=== PATIENT | female | born 1970 | race Caucasian/White ===

== ENCOUNTER → 2017-08-22 | Outpatient (CLI) | payer OTHER ==
[~2017-08-22] MED LIST: ALBU.083IS IH; ALBU90OI INH; ALBU90OI61 INH; BUDE10.22 IH; CETI10 PO; DIPH50 PO; DOXY100 PO; DULO30 PO; ERGO50000 PO; FISH1000 PO; FLUSAL2505 IH; FLUSAL5005 IH; GUAI600T33 PO; LATISSE TP; MONT10T; MULVITMINF PO; Mobic15 MG PO; PRED10 PO; PRED20 PO; ZOLP5
[2017-08-22 18:17] LABS: BASOPHILS ABSOLUTE AUTO 0.04 K/mm3 (0.00-0.23); BASOPHILS PERCENT AUTO 0 % (0-2); EOSINOPHILS ABSOLUTE AUTO 0.34 K/mm3 (0.00-0.68); EOSINOPHILS PERCENT AUTO 3 % (0-6); Hematocrit 37.2 % (33.0-51.0); Hemoglobin 12.1 g/dL (11.5-16.0); IMMATURE GRAN ABSOLUTE AUTO 0.03 K/mm3 (0.00-0.10); IMMATURE GRAN PERCENT AUTO 0 % (0-1); LYMPHOCYTES ABSOLUTE AUTO 2.77 K/mm3 (0.84-5.20); LYMPHOCYTES PERCENT AUTO 24 % (21-46); MONOCYTES ABSOLUTE AUTO 0.68 K/mm3 (0.16-1.47); MONOCYTES PERCENT AUTO 6 % (4-13); Mean Corpuscular HGB 28.3 pg (26.0-34.0); Mean Corpuscular HGB Conc 32.5 g/dL (31.5-36.5); Mean Corpuscular Volume 87 fL (80-100); Mean Platelet Volume 9.7 fL (9.1-12.4); NEUTROPHILS ABSOLUTE AUTO 7.77 K/mm3 (1.96-9.15); NEUTROPHILS PERCENT AUTO 67 % (41-73); Platelet Count 336 K/mm3 (150-400); RDW Coefficient Variation 13.5 % (11.7-14.2); RDW Standard Deviation 42.5 fL (35.1-46.3); Red Blood Cell Count 4.28 M/mm3 (3.80-5.20); White Blood Cell Count 11.63 K/mm3 (4.00-11.30)
[2017-08-22 20:31] LABS: Alanine Aminotransfer (ALT/SGP 22 U/L (12-78); Albumin, Blood 3.5 g/dL (3.4-5.0); Alk Phos 74 U/L (50-136); Anion Gap 7 mmol/L (6-16); Aspartate Aminotrans (AST/SGOT 13 U/L (12-37); Bilirubin, Total 0.5 mg/dL (0.1-1.0); Blood Urea Nitrogen 11 mg/dL (8-24); Bun/Creatinine Ratio 14.7 (12.0-20.0); CO2, Blood 25 mmol/L (21-32); Calcium, Blood 8.3 mg/dL (8.5-10.1); Chloride, Blood 107 mmol/L (98-108); Creatinine, Blood 0.75 mg/dL (0.40-1.00); Globulin, Blood 3.4 g/dL (2.2-4.0); Glomerular Filtration Rate >60 (60-); Glucose, Blood 90 mg/dL (70-99); Potassium, Blood 3.9 mmol/L (3.5-5.5); Sodium, Blood 139 mmol/L (136-145); Total Protein, Blood 6.9 g/dL (6.4-8.2)
== END | disposition home or self-care (01) ==
LOC: LAB 15:30
PROVIDERS: Nurse Practitioner Adult Health
DX: R22.30 Localized swelling, mass and lump, unspecified upper limb (principal)
CPT/HCPCS: 80053; 85025

== ENCOUNTER → 2017-10-05 | Outpatient (CLI) | payer OTHER ==
[2017-10-05 21:11] LABS: Alanine Aminotransfer (ALT/SGP 23 U/L (12-78); Albumin, Blood 3.5 g/dL (3.4-5.0); Albumin/Globulin Ratio 1.1 (0.8-1.8); Alk Phos 65 U/L (50-136); Anion Gap 6 mmol/L (6-16); Aspartate Aminotrans (AST/SGOT 11 U/L (12-37); Bilirubin, Total 0.5 mg/dL (0.1-1.0); Blood Urea Nitrogen 14 mg/dL (8-24); Bun/Creatinine Ratio 17.8 (12.0-20.0); CO2, Blood 28 mmol/L (21-32); Calcium, Blood 8.9 mg/dL (8.5-10.1); Chloride, Blood 106 mmol/L (98-108); Creatinine, Blood 0.79 mg/dL (0.40-1.00); Globulin, Blood 3.2 g/dL (2.2-4.0); Glomerular Filtration Rate >60 (60-); Glucose, Blood 81 mg/dL (70-99); Potassium, Blood 4.2 mmol/L (3.5-5.5); Sodium, Blood 140 mmol/L (136-145); Total Protein, Blood 6.7 g/dL (6.4-8.2)
== END ==
LOC: LAB SHORT 09:36 → LAB 09:36
PROVIDERS: Nurse Practitioner Adult Health
DX: E78.4 Other hyperlipidemia (principal); R22.30 Localized swelling, mass and lump, unspecified upper limb; R53.83 Other fatigue
CPT/HCPCS: 80053

== ENCOUNTER → 2017-10-12 | Outpatient (CLI) | payer OTHER ==
[2017-10-12 18:31] LABS: BASOPHILS ABSOLUTE AUTO 0.04 K/mm3 (0.00-0.23); BASOPHILS PERCENT AUTO 1 % (0-2); EOSINOPHILS ABSOLUTE AUTO 0.37 K/mm3 (0.00-0.68); EOSINOPHILS PERCENT AUTO 5 % (0-6); Hematocrit 37.6 % (33.0-51.0); IMMATURE GRAN ABSOLUTE AUTO 0.02 K/mm3 (0.00-0.10); IMMATURE GRAN PERCENT AUTO 0 % (0-1); LYMPHOCYTES ABSOLUTE AUTO 2.57 K/mm3 (0.84-5.20); LYMPHOCYTES PERCENT AUTO 35 % (21-46); MONOCYTES ABSOLUTE AUTO 0.46 K/mm3 (0.16-1.47); MONOCYTES PERCENT AUTO 6 % (4-13); Mean Corpuscular HGB 28.4 pg (26.0-34.0); Mean Corpuscular HGB Conc 31.9 g/dL (31.5-36.5); Mean Corpuscular Volume 89 fL (80-100); Mean Platelet Volume 10.4 fL (9.1-12.4); NEUTROPHILS ABSOLUTE AUTO 3.88 K/mm3 (1.96-9.15); NEUTROPHILS PERCENT AUTO 53 % (41-73); Platelet Count 280 K/mm3 (150-400); RDW Coefficient Variation 13.7 % (11.7-14.2); RDW Standard Deviation 44.8 fL (35.1-46.3); Red Blood Cell Count 4.22 M/mm3 (3.80-5.20); White Blood Cell Count 7.34 K/mm3 (4.00-11.30)
[2017-10-12 18:53] LABS: Percent Saturation 9.4 % (15.0-50.0)
== END | disposition home or self-care (01) ==
LOC: LAB 15:30 → LAB SHORT 15:30
PROVIDERS: Nurse Practitioner Adult Health
DX: D72.829 Elevated white blood cell count, unspecified (principal); D64.9 Anemia, unspecified
CPT/HCPCS: 82728; 83540; 83550; 85025

== ENCOUNTER 2017-11-08 13:54 | Day surgery (SDC) | payer OTHER | END 2017-11-08 22:39 | disposition home or self-care (01) | LOC: US 13:54 | PROC: 0HBDXZX Excision of Right Lower Arm Skin, External Approach, Diagnostic (ICD-10-PCS; principal; 2017-11-08) | DX: R22.31 Localized swelling, mass and lump, right upper limb (principal) | CPT/HCPCS: 20206; 36415; 76942; 85610; 85730; 88305; 88342 ==

== ENCOUNTER → 2018-04-10 | Outpatient (CLI) | payer OTHER ==
[2018-04-10 17:56] LABS: BASOPHILS ABSOLUTE AUTO 0.06 K/mm3 (0.00-0.23); BASOPHILS PERCENT AUTO 1 % (0-2); EOSINOPHILS ABSOLUTE AUTO 0.42 K/mm3 (0.00-0.68); EOSINOPHILS PERCENT AUTO 4 % (0-6); Hematocrit 39.5 % (33.0-51.0); Hemoglobin 12.4 g/dL (11.5-16.0); IMMATURE GRAN ABSOLUTE AUTO 0.02 K/mm3 (0.00-0.10); IMMATURE GRAN PERCENT AUTO 0 % (0-1); LYMPHOCYTES ABSOLUTE AUTO 2.92 K/mm3 (0.84-5.20); LYMPHOCYTES PERCENT AUTO 27 % (21-46); MONOCYTES ABSOLUTE AUTO 0.63 K/mm3 (0.16-1.47); MONOCYTES PERCENT AUTO 6 % (4-13); Mean Corpuscular HGB Conc 31.4 g/dL (31.5-36.5); Mean Corpuscular Volume 89 fL (80-100); Mean Platelet Volume 9.9 fL (9.1-12.4); NEUTROPHILS ABSOLUTE AUTO 6.83 K/mm3 (1.96-9.15); NEUTROPHILS PERCENT AUTO 63 % (41-73); Platelet Count 350 K/mm3 (150-400); RDW Coefficient Variation 13.7 % (11.7-14.2); RDW Standard Deviation 44.9 fL (35.1-46.3); Red Blood Cell Count 4.43 M/mm3 (3.80-5.20); White Blood Cell Count 10.88 K/mm3 (4.00-11.30)
[2018-04-10 18:21] LABS: Free Thyroxine 0.84 ng/dL (0.70-1.60)
[2018-04-10 18:26] LABS: Percent Saturation 18.9 % (15.0-50.0)
[2018-04-10 18:32] LABS: Alanine Aminotransfer (ALT/SGP 26 U/L (12-78); Albumin, Blood 3.5 g/dL (3.4-5.0); Albumin/Globulin Ratio 0.9 (0.8-1.8); Alk Phos 67 U/L (50-136); Anion Gap 7 mmol/L (6-16); Aspartate Aminotrans (AST/SGOT 12 U/L (12-37); Bilirubin, Total 0.5 mg/dL (0.1-1.0); Blood Urea Nitrogen 11 mg/dL (8-24); Bun/Creatinine Ratio 16.6 (12.0-20.0); CO2, Blood 25 mmol/L (21-32); Calcium, Blood 8.4 mg/dL (8.5-10.1); Chloride, Blood 106 mmol/L (98-108); Creatinine, Blood 0.66 mg/dL (0.40-1.00); Globulin, Blood 3.7 g/dL (2.2-4.0); Glomerular Filtration Rate >60 (60-); Glucose, Blood 94 mg/dL (70-99); Potassium, Blood 4.2 mmol/L (3.5-5.5); Sodium, Blood 138 mmol/L (136-145); Total Protein, Blood 7.2 g/dL (6.4-8.2)
== END ==
LOC: LAB SHORT 15:18 → LAB 15:18
PROVIDERS: Nurse Practitioner Family
DX: D50.8 Other iron deficiency anemias (principal); R53.83 Other fatigue
CPT/HCPCS: 80053; 83540; 83550; 84439; 84443; 85025; 86376

== ENCOUNTER → 2021-04-27 | Outpatient (CLI) | payer OTHER ==
[2021-04-27 19:05] LABS: CHOL/HDL RATIO 4.8; Cholesterol 195 mg/dL (50-200); HDL Cholesterol 41 mg/dL (>39); LDL/HDL RATIO 3.3; Low Density Lipoprotein Chol 135 mg/dL (0-110); Triglycerides 95 mg/dL (30-160); Very Low Density Lipoprot Chol 19 mg/dL (6-32)
[2021-04-27 19:09] LABS: Thyroid Stimulating Hormone 0.908 uIU/mL (0.360-4.800)
[2021-04-27 19:35] LABS: Percent Saturation 12.1 % (15.0-50.0)
== END | disposition home or self-care (01) ==
LOC: LAB 16:20 → LAB SHORT 16:20
PROVIDERS: Nurse Practitioner Family
DX: E66.9 Obesity, unspecified (principal)
CPT/HCPCS: 80061; 82728; 83036; 83540; 83550; 84443

== ENCOUNTER → 2021-10-18 | Outpatient (CLI) | payer OTHER ==
[2021-10-18 19:51] LABS: Albumin, Blood 3.8 g/dL (3.4-5.0); Albumin/Globulin Ratio 1.1 (0.8-1.8); Bilirubin, Total 0.4 mg/dL (0.1-1.0); Bun/Creatinine Ratio 24.1 (12.0-20.0); Calcium, Blood 8.9 mg/dL (8.5-10.1); Creatinine, Blood 0.87 mg/dL (0.40-1.00); Globulin, Blood 3.5 g/dL (2.2-4.0); Percent Saturation 10.5 % (15.0-50.0); Potassium, Blood 4.5 mmol/L (3.5-5.5); Total Protein, Blood 7.3 g/dL (6.4-8.2)
== END ==
LOC: LAB SHORT 16:54 → LAB 16:54
PROVIDERS: Nurse Practitioner Family
DX: R73.03 Prediabetes (principal); D50.8 Other iron deficiency anemias
CPT/HCPCS: 80053; 82728; 83036; 83540; 83550

== ENCOUNTER 2024-09-19 12:34 | Day surgery (SDC) | payer OTHER ==
[~2024-09-19] VITALS: Ht 167.6 cm; Wt 120.3 kg
[~2024-09-19 12:34] MED LIST changes: +Lactated Ringer's 1,000 ML IV ONE
[2024-09-19 13:20] VITALS: BP 135/85
[2024-09-19] MEDS ORDERED: Lactated Ringer's 1,000 ML IV ONE ×2 (13:20→15:42)
[2024-09-19] MEDS ORDERED: Fluconazole 100 MG Tab PO ONE ×3 (14:10→14:40)
[2024-09-19] MEDS ORDERED: propofoL 20 ML IV ONE (14:13)
[2024-09-19] MEDS ORDERED: Ondansetron HCl 2 MG / ML 2ML Vial ONE (14:14)
[2024-09-19] MEDS ORDERED: Dexamethasone Sod Phos 10 MG/ML 1ML VIAL ONE (14:14)
[2024-09-19] MEDS ORDERED: Ipratropium/Albuterol SulF 2.5-0.5MG/3 ML Amp ONE (14:44)
[2024-09-19] MEDS ORDERED: Metoclopramide HCl 5MG / ML 2ML Vial ONE (14:49)
[2024-09-19] MEDS ORDERED: Citric Acid/Sodium Citrate 30 ML BTL ONE (14:49)
--- NOTE | 2024-09-19 15:53 | NUR ---
09/19/24 1553 Sherrie Cason PT. CASE CANCELLED PER ANESTHESIOLOGIST DR. TRIMBLE. PT. RECENTLY ON ANTIBIOTICS IN August FOR UPPER RESPIRATORY INFECTION & BRONCHITIS.
== END 2024-09-19 15:49 | disposition home or self-care (01) ==
LOC: ORSCSDS 12:34
DX: R93.89 Abnormal findings on diagnostic imaging of other specified body structures (principal); N85.2 Hypertrophy of uterus; Z53.9 Procedure and treatment not carried out, unspecified reason
CPT/HCPCS: 82947; A9270; J1100; J2405; J2704; J2765; J7120

== ENCOUNTER 2024-11-07 13:23 | Day surgery (SDC) | payer OTHER ==
[~2024-11-07] VITALS: Ht 164 cm; Wt 120.8 kg
[2024-11-07] VITALS (11 sets, daily range): BP systolic 115–152; BP diastolic 65–99
[~2024-11-07 13:23] MED LIST changes: +LORA10ER PO; -Lactated Ringer's 1,000 ML IV ONE; +Lactated Ringer's 1,000 ML IV SCH
--- NOTE | 2024-11-07 14:46 | NUR ---
History, Chart, Medications and Allergies reviewed before start of procedure. Patient States Post-Procedure ride home has been arranged.
[2024-11-07] MEDS ORDERED: HYDROcodone 5-APAP 325 TAB PO PRN (15:10)
[2024-11-07] MEDS ORDERED: propofoL 20 ML IV ONE ×2 (15:22→15:43)
[2024-11-07] MEDS ORDERED: Midazolam HCl 1MG / ML 2ML Vial ONE (15:24)
[2024-11-07] MEDS ORDERED: Ondansetron HCl 2 MG / ML 2ML Vial ONE ×2 (15:34→16:59)
[2024-11-07] MEDS ORDERED: Dexamethasone Sod Phos 10 MG/ML 1ML VIAL ONE (15:34)
[2024-11-07] MEDS ORDERED: FentaNYL Citrate 50 MCG/ML 2 ML Injection ONE (15:44)
--- NOTE | 2024-11-07 15:48 | NUR ---
11/07/24 1548 Thien Harmon PLACED IN OPERATING ROOM IN [facility] BY RN UNDER VERBAL ORDER OF DR. QUIÑONES.
[2024-11-07] MEDS ORDERED: Ibuprofen 400 MG Tab PO ONE (16:00)
[2024-11-07] MEDS ORDERED: Albuterol 2.5 MG/3 ML VIAL ONE (16:06)
[2024-11-07] MEDS ORDERED: Albuterol HFA200 ACT/6.7 GM INH ONE (16:08)
[2024-11-07] MEDS ORDERED: Lidocaine HCl 2% 20 ML MDV ONE (16:16)
[2024-11-07] MEDS ORDERED: Phenazopyridine HCl 100 MG Tab PO ONE (17:25)
--- NOTE | 2024-11-07 18:11 | NUR ---
Discharge instructions reviewed with patient. Patient verbalizes understanding. Copy given to patient to take home. Discharged via wheelchair to private car for ride home. Ice pack provided.
== END 2024-11-07 18:10 | disposition home or self-care (01) ==
LOC: ORD 13:23 → ORSCMMR 13:23 → ORD 13:29 → ORSCMMR 18:10 → ORD 18:10
PROVIDERS: Obstetrics & Gynecology
PROC: 0UDB8ZX Extraction of Endometrium, Via Natural or Artificial Opening Endoscopic, Diagnostic (ICD-10-PCS; principal; 2024-11-07 15:00)
DX: R93.89 Abnormal findings on diagnostic imaging of other specified body structures (principal); C54.1 Malignant neoplasm of endometrium; N95.2 Postmenopausal atrophic vaginitis; N95.0 Postmenopausal bleeding; Z17.0 Estrogen receptor positive status [ER+]; N84.0 Polyp of corpus uteri; J45.909 Unspecified asthma, uncomplicated; G47.33 Obstructive sleep apnea (adult) (pediatric); F17.210 Nicotine dependence, cigarettes, uncomplicated; Z86.73 Personal history of transient ischemic attack (TIA), and cerebral infarction without residual deficits; Z79.899 Other long term (current) drug therapy; E66.01 Morbid (severe) obesity due to excess calories; Z68.42 Body mass index [BMI] 45.0-49.9, adult
CPT/HCPCS: 82947; 88305; 88341; 88342; A9270; J1100; J2250; J2405; J2704; J3010; J7120

== ENCOUNTER → 2025-05-13 | Outpatient (CLI) | payer OTHER ==
[~2025-05-13] MED LIST changes: -Lactated Ringer's 1,000 ML IV SCH
[2025-05-13 18:38] LABS: BASOPHILS ABSOLUTE AUTO 0.04 K/mm3 (0.00-0.23); BASOPHILS PERCENT AUTO 1 % (0-2); EOSINOPHILS ABSOLUTE AUTO 0.21 K/mm3 (0.00-0.68); EOSINOPHILS PERCENT AUTO 3 % (0-6); Hematocrit 41.1 % (33.0-51.0); Hemoglobin 12.7 g/dL (11.5-16.0); IMMATURE GRAN ABSOLUTE AUTO 0.01 K/mm3 (0.00-0.10); IMMATURE GRAN PERCENT AUTO 0 % (0-1); LYMPHOCYTES ABSOLUTE AUTO 3.24 K/mm3 (0.84-5.20); LYMPHOCYTES PERCENT AUTO 41 % (21-46); MONOCYTES ABSOLUTE AUTO 0.48 K/mm3 (0.16-1.47); MONOCYTES PERCENT AUTO 6 % (4-13); Mean Corpuscular HGB Conc 30.9 g/dL (31.5-36.5); Mean Corpuscular Volume 82 fL (80-100); NEUTROPHILS ABSOLUTE AUTO 3.91 K/mm3 (1.96-9.15); NEUTROPHILS PERCENT AUTO 50 % (41-73); NRBC ABSOLUTE 0.00 K/mm3 (0.00-0.02); NRBC Auto 0.0 /100 WBC (0.0-0.2); Platelet Count 338 K/mm3 (150-400); RDW Coefficient Variation 17.5 % (11.7-14.2); RDW Standard Deviation 52.2 fL (35.1-46.3)
[2025-05-13 18:44] LABS: Ferritin, Serum 30.0 ng/mL (8-252); Total Iron Binding Capacity 359.0 ug/dL (250-450)
== END ==
LOC: LAB 16:54 → LAB SHORT 16:54
PROVIDERS: Family Medicine
DX: E61.1 Iron deficiency (principal); M79.7 Fibromyalgia
CPT/HCPCS: 82607; 82728; 82746; 83540; 83550; 85025